=== PATIENT | male | born 1980 | race Caucasian/White ===

== ENCOUNTER 2016-09-17 18:41 | Emergency (ER) | payer OTHER ==
[~2016-09-17] VITALS: Ht 167.6 cm; Wt 65.4 kg
[2016-09-17] MEDS ORDERED: PERCOCET 5/31 TABLET PO (19:43)
[2016-09-17] MEDS ORDERED: VALIUM5 MG PO (19:43)
[2016-09-17] MEDS ORDERED: MEDROL DOSEPAK4 MG PO (19:43)
[2016-09-17 20:27] VITALS: BP 118/61
== END 2016-09-17 20:27 | disposition home or self-care (01) ==
LOC: EME 18:41
DX: M54.5 Low back pain (principal)
CPT/HCPCS: 99281; 99284; J7512